=== PATIENT | female | born 1955 | race Hispanic/Latino ===

== ENCOUNTER → 2023-06-05 09:57 | Outpatient (CLI) | payer OTHER, SELFPAY ==
--- NOTE | 2023-06-05 10:01 | DI.RAD.S_ITS ---
PROCEDURE: FL CATHETER PATENCY COMPARISON: None. INDICATIONS: PORT PATENCY FINDINGS: A left chest port is present with tip of the catheter projecting over the right atrium/intrahepatic IVC. The port was accessed/de accessed by imaging nursing staff. With injection of the port with intravenous contrast, the catheter is observed to be patent with contrast flowing through the tip of the catheter. The port was then flushed with saline. IMPRESSION: Patent left chest port catheter. Tip of the catheter projects over the right atrium/intrahepatic IVC. Dictated by: Cecil Cote M.D. on 06/05/2023 at 11:17 Approved by: Cecil Cote M.D. on 06/05/2023 at 11:20
== END ==
PROVIDERS: PCP Physician Assistant Medical; Referring Provider Internal Medicine; Visit Provider Internal Medicine
DX: T82.594A Other mechanical complication of infusion catheter, initial encounter
CPT/HCPCS: 76000

== ENCOUNTER → 2024-09-07 06:43 | Outpatient (CLI) | payer MEDICARE, SELFPAY ==
--- NOTE | 2024-09-07 06:45 | DI.MRI.S_ITS ---
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 Dynamic axial VIBE during the administration of contrast; post-contrast coronal VIBE or 2D FLASH with fat saturation from the hepatic dome to the iliac crests. Optional diffusion weighted imaging and ADC may be performed. COMPARISON: None. FINDINGS: Image quality: Diagnostic. Lung bases: Unremarkable. Liver: -Segment 7/8 medial lesion measuring 6.6 x 3.8 cm, (3/35). The lesion is heterogeneously enhancing and microlobulated. Heterogeneous T2 hyperintense signal. -Segment 6 enhancing focus measuring 0.8 cm, (6/45). Homogeneous T2 hyperintense signal. Gallbladder: No gallstones or wall thickening. Biliary ducts: No biliary dilation. Pancreas: No ductal dilation. Spleen: Size is within normal limits. Adrenal Glands: No adrenal nodules. Kidneys and Ureters: No hydronephrosis. Mid left kidney T2 hypointense lesion measuring 2.4 cm, (3/19). There is subtle intrinsic T1 hyperintense signal. There is no definite enhancement. No convincing restricted diffusion. Signal dropout on the opposed phase images could represent intralesional fat. Stomach and Bowel: No dilated loops of bowel seen. Peritoneum: No ascites. Ventral Wall: No hernia. Abdominal Nodes: No retroperitoneal or mesenteric adenopathy by size criteria. Vessels: Aorta and inferior vena cava are normal in size. Bones: No aggressive osseous abnormality. IMPRESSION: 1. Segment 7/8 hepatic lesion measuring 6.6 cm. Highly suspicious for metastatic disease. 2. Segment 6 enhancing focus measuring 0.8 cm. Suspicious for additional metastatic disease. However, difficult to definitively characterize given its small size. 3. Mid left kidney T2 hypointense lesion measuring 2.4 cm. Indeterminate. No convincing enhancement. Possible intralesional fat. -Renal protocol CT would be helpful for further characterization. Dictated by: David Rivera M.D. on 09/09/2024 at 8:17 Approved by: David Rivera M.D. on 09/09/2024 at 8:35
== END ==
PROVIDERS: PCP Physician Assistant Medical; Referring Provider Internal Medicine Medical Oncology; Visit Provider Internal Medicine Medical Oncology
DX: C20 Malignant neoplasm of rectum (principal); C78.7 Secondary malignant neoplasm of liver and intrahepatic bile duct; N28.9 Disorder of kidney and ureter, unspecified
CPT/HCPCS: 74183; A9579